=== PATIENT | male | born 1990 | race Two or more races ===

== ENCOUNTER 2018-04-09 02:16 | Emergency (ER) | payer OTHER ==
[~2018-04-09] VITALS: Ht 177.8 cm; Wt 68.0 kg
[~2018-04-09 02:16] MED LIST: IBUPROFEN800 MG PO
== END 2018-04-09 03:37 | disposition home or self-care (01) ==
LOC: ER 02:16
DX: R11.2 Nausea with vomiting, unspecified (principal); F06.4 Anxiety disorder due to known physiological condition

== ENCOUNTER → 2018-12-09 | Emergency (ER) | payer OTHER ==
[~2018-12-09] VITALS: Ht 170.2 cm; Wt 72.6 kg
[~2018-12-09] MED LIST changes: +KETO10TA2 PO; +ORPHENADRINE C100 MG PO
== END | disposition home or self-care (01) ==
LOC: ER 06:05
DX: S83.91XA Sprain of unspecified site of right knee, initial encounter (principal); X50.3XXA Overexertion from repetitive movements, initial encounter; Y93.89 Activity, other specified; Y92.89 Other specified places as the place of occurrence of the external cause; Y99.8 Other external cause status

== ENCOUNTER 2020-01-07 01:23 | Emergency (ER) | payer OTHER ==
[~2020-01-07] VITALS: Ht 177.8 cm; Wt 78.5 kg
== END 2020-01-07 04:26 | disposition home or self-care (01) ==
LOC: ER 01:23
DX: S93.491A Sprain of other ligament of right ankle, initial encounter (principal); X50.1XXA Overexertion from prolonged static or awkward postures, initial encounter; Y93.66 Activity, soccer; Y92.322 Soccer field as the place of occurrence of the external cause; Y99.8 Other external cause status